=== PATIENT | male | born 1940 | race Caucasian/White ===

== ENCOUNTER 2018-06-03 18:06 | Observation (INO) | payer MEDICARE, OTHER ==
[~2018-06-03] VITALS: Ht 182.9 cm; Wt 87.2 kg
--- NOTE | 2018-06-03 18:18 | NUR ---
HAL ARCE from near [facility]. Patient states, "I didn't really have a complaint at [facility], but they kicked me out anyway. I started having CP as I was leaving [facility]". C/O non-radiating left sided CP. Denies SOB, palpitations, dizziness, and nausea. Given 162mg ASA at [facility] and an additional 162mg ASA by [facility]. Nitro x1 given by [facility] with no relief. EKG done. Placed on NIBP, pulse ox and pvc monitor. Will continue to monitor.
--- NOTE | 2018-06-03 18:54 | NUR ---
assumed care for this pt.
[2018-06-03 18:57] LABS: BASOPHILS # (AUTO) 0.05 x10^3/uL (0-0.1); BASOPHILS % (AUTO) 1 % (0-1); EOSINOPHILS # (AUTO) 0.14 x10^3/uL (0-0.4); EOSINOPHILS % (AUTO) 1 % (1-7); LYMPHOCYTES # (AUTO) 2.34 x10^3/uL (1-3.4); LYMPHOCYTES % (AUTO) 24 % (22-44); MD NO; MEAN CORPUSCULAR HGB CONC 33.4 g/dL (33.2-36.2); MEAN CORPUSCULAR VOLUME 89.7 fL (81-97); MEAN PLATELET VOLUME 8.6 fL (7.4-10.4); MONOCYTES # (AUTO) 0.78 x10^3/uL (0.2-0.8); MONOCYTES % (AUTO) 8 % (2-9); NEUTROPHILS % (AUTO) 66 % (42-75); PLATELET COUNT 278 x10^3/uL (130-400); RED BLOOD COUNT 4.85 x10^6/uL (4.38-5.82); RED CELL DISTRIBUTION WIDTH 15.6 % (9.4-14.8)
[2018-06-03 19:10] LABS: ALBUMIN 2.9 g/dL (3.4-5.0); CREATININE 1.34 mg/dL (0.7-1.3)
[2018-06-03 19:14] LABS: TROPONIN I 0.029 ng/mL (0.000-0.045)
[2018-06-03 19:15] LABS: ANION GAP 4 mmol/L (5-15); CHLORIDE 106 mmol/L (98-107)
--- NOTE | 2018-06-03 19:45 | NUR ---
PT UP FOR RECHECK WITH ALL RESULTS BACK.
[2018-06-03] MEDS ORDERED: NITROGLYCERIN 0.2 MG/HR PATCH TD SCH (20:00)
--- NOTE | 2018-06-03 20:25 | NUR ---
ADMIT MD TO BEDSIDE.
[2018-06-03] MEDS ORDERED: HYDROcodone/APAP 5/325 TABLET PO PRN (20:30)
[2018-06-03] MEDS ORDERED: NITROGLYCERIN 0.4 MG BOTTLE (25 TABS) SL PRN (20:30)
[2018-06-03] MEDS ORDERED: ONDANSETRON ODT 4 MG PO PRN (20:30)
[2018-06-03] MEDS ORDERED: ACETAMINOPHEN 325 MG TABLET PO PRN (20:30)
[2018-06-03] MEDS ORDERED: SPIR25TA5 PO (20:42)
[2018-06-03] MEDS ORDERED: ATOR20TA37 PO (20:42)
[2018-06-03] MEDS ORDERED: LISI-170 PO (20:42)
[2018-06-03] MEDS ORDERED: TRAZ50TA66 PO (20:42)
[2018-06-03] MEDS ORDERED: INSU100V13 SQ (20:49)
[2018-06-03] MEDS ORDERED: WARF1TAB74 PO (20:52)
[2018-06-03] MEDS ORDERED: ATORVASTATIN 20 MG TABLET PO SCH (21:00)
[2018-06-03] MEDS ORDERED: TRAZODONE 50MG TABLET PO SCH (21:00)
--- NOTE | 2018-06-03 21:53 | NUR ---
REPORT CALLED TO FLOOR PT ASLEEP AWAITING TRANSPORT TO TELE FLOOR.
[2018-06-03 22:33] VITALS: BP 153/84
[2018-06-03] MEDS ORDERED: INSU100V8 SQ (23:07)
[2018-06-03 23:24] LABS: TROPONIN I 0.037 ng/mL (0.000-0.045)
[2018-06-04] MEDS ORDERED: INSU100I28 SC (00:07)
[2018-06-04] MEDS: INSULIN REGULAR 100 UNITS/ML, 3ML VIAL SQ-INSULIN SCH ×4 (00:39→16:00)
[2018-06-04] MEDS: SODIUM CHLORIDE 0.9% 1,000 ML IV SCH ×2 (00:43→11:41)
[2018-06-04 02:25] VITALS: BP 157/89
[2018-06-04 05:49] LABS: BASOPHILS # (AUTO) 0.06 x10^3/uL (0-0.1); BASOPHILS % (AUTO) 1 % (0-1); EOSINOPHILS # (AUTO) 0.21 x10^3/uL (0-0.4); EOSINOPHILS % (AUTO) 3 % (1-7); LYMPHOCYTES # (AUTO) 2.32 x10^3/uL (1-3.4); LYMPHOCYTES % (AUTO) 33 % (22-44); MD NO; MEAN CORPUSCULAR HEMOGLOBIN 30.3 pg (27.5-34.5); MEAN CORPUSCULAR HGB CONC 33.6 g/dL (33.2-36.2); MEAN CORPUSCULAR VOLUME 90.2 fL (81-97); MONOCYTES # (AUTO) 0.72 x10^3/uL (0.2-0.8); MONOCYTES % (AUTO) 10 % (2-9); NEUTROPHILS # (AUTO) 3.68 x10^3/uL (1.8-6.8); NEUTROPHILS % (AUTO) 53 % (42-75); PLATELET COUNT 234 x10^3/uL (130-400); RED BLOOD COUNT 4.45 x10^6/uL (4.38-5.82); RED CELL DISTRIBUTION WIDTH 15.6 % (9.4-14.8)
[2018-06-04 05:53] LABS: CALCIUM 8.6 mg/dL (8.5-10.1); CHLORIDE 109 mmol/L (98-107)
[2018-06-04] MEDS ORDERED: ASPIRIN 325 MG TABLET EC PO SCH (06:00)
[2018-06-04 06:02] LABS: ANION GAP 5 mmol/L (5-15); CHOL/HDL RATIO 4.5; CHOLESTEROL, TOTAL 148 mg/dL (140-239); CREATININE 1.06 mg/dL (0.7-1.3); HDL CHOL % 22 % (26-37); HDL CHOLESTEROL (DIRECT) 33 mg/dL (40-60); LDL CHOLESTEROL,CALCULATED 99 mg/dL (54-169); TRIGLYCERIDES 82 mg/dL (50-200); TROPONIN I 0.041 ng/mL (0.000-0.045); VLDL CHOLESTEROL 16 mg/dL (0-25)
[2018-06-04 07:51] VITALS: BP 131/74
[2018-06-04] MEDS ORDERED: REGADENOSON 0.4 MG/5 ML SYRINGE ONE (08:45)
[2018-06-04] MEDS ORDERED: SPIRONOLACTONE 25 MG TABLET PO SCH (09:00)
[2018-06-04] MEDS ORDERED: INSULIN GLARGINE 100 UNITS/ML, PEN SQ-INSULIN SCH (09:00)
[2018-06-04] MEDS ORDERED: LISINOPRIL 20 MG TABLET PO SCH (09:00)
[2018-06-04 12:46] VITALS: BP 129/69
[2018-06-04 15:25] LABS: INTERNATIONAL NORMALIZED RATIO 1.09 (0.93-1.1); PROTHROMBIN TIME 11.5 Seconds (9.6-11.5)
[2018-06-05] MEDS ORDERED: ASPIRIN 81 MG TABLET EC PO SCH (06:00)
== END 2018-06-04 18:25 | disposition home or self-care (01) ==
LOC: SUATTDRO 20:07 → ED 21:02 → INTOOBSV 21:05 → EDIP 21:05 → 5SO 22:04
PROVIDERS: ADMIT Hospitalist; ATTEND Hospitalist
DX: R07.89 Other chest pain (principal); E11.9 Type 2 diabetes mellitus without complications; D68.69 Other thrombophilia; E43 Unspecified severe protein-calorie malnutrition; E87.5 Hyperkalemia; I21.09 ST elevation (STEMI) myocardial infarction involving other coronary artery of anterior wall; I25.10 Atherosclerotic heart disease of native coronary artery without angina pectoris; I48.2 Chronic atrial fibrillation; I25.2 Old myocardial infarction; I50.9 Heart failure, unspecified; N28.9 Disorder of kidney and ureter, unspecified; Z59.0 Homelessness; Z79.01 Long term (current) use of anticoagulants; Z82.49 Family history of ischemic heart disease and other diseases of the circulatory system; Z86.12 Personal history of poliomyelitis; Z86.73 Personal history of transient ischemic attack (TIA), and cerebral infarction without residual deficits; Z87.891 Personal history of nicotine dependence; Z91.14 Patient's other noncompliance with medication regimen; Z91.19 Patient's noncompliance with other medical treatment and regimen; Z99.3 Dependence on wheelchair
CPT/HCPCS: 36415; 71045; 78452; 80048; 80061; 82040; 82962; 83735; 83880; 84100; 84484; 85025; 85379; 85610; 93005; 93017; 96372; 97162; 97165; 99284; A9502; C9898; G0378; J1815; J2785; J7030; 99285